=== PATIENT | female | born 1965 | race Caucasian/White ===

== ENCOUNTER 2017-10-10 15:34 | Emergency (ER) | payer MEDICAID, OTHER ==
[~2017-10-10] VITALS: Ht 152.4 cm; Wt 83.8 kg
[2017-10-10 15:51] VITALS: BP 127/90
== END 2017-10-10 17:02 | disposition home or self-care (01) ==
LOC: ED 16:55
DX: J20.8 Acute bronchitis due to other specified organisms (principal); B96.89 Other specified bacterial agents as the cause of diseases classified elsewhere; J00 Acute nasopharyngitis [common cold]; B97.89 Other viral agents as the cause of diseases classified elsewhere
CPT/HCPCS: 71046; 99284

== ENCOUNTER 2017-10-13 14:29 | Emergency (ER) | payer OTHER ==
[~2017-10-13] VITALS: Ht 147.3 cm; Wt 82.7 kg
[2017-10-13 14:34] VITALS: BP 117/83
[2017-10-13] MEDS ORDERED: BENZ100C PO (15:20)
[2017-10-13] MEDS ORDERED: AZIT250T PO (15:20)
[2017-10-13] MEDS ORDERED: DEXAMETHASONE 4 MG/ML, 1ML ONE (15:46)
[2017-10-13] MEDS ORDERED: DEXAMETHASONE 4 MG/ML, 1ML PO ONE (16:00)
== END 2017-10-13 16:42 | disposition home or self-care (01) ==
LOC: ED 15:00
DX: B34.9 Viral infection, unspecified (principal)
CPT/HCPCS: 71046; 93005; 99284; J1100

== ENCOUNTER 2018-04-10 17:08 | Emergency (ER) | payer OTHER ==
[~2018-04-10] VITALS: Ht 157.5 cm; Wt 181.6 kg
[~2018-04-10 17:08] MED LIST: AZIT250T PO; BENZ100C PO
[2018-04-10 17:17] VITALS: BP 120/82
[2018-04-10 17:51] LABS: BASOPHILS # (AUTO) 0.04 x10^3/uL (0-0.1); BASOPHILS % (AUTO) 0 % (0-1); EOSINOPHILS % (AUTO) 1 % (1-7); LYMPHOCYTES # (AUTO) 3.37 x10^3/uL (1-3.4); LYMPHOCYTES % (AUTO) 31 % (22-44); MD NO; MEAN CORPUSCULAR HEMOGLOBIN 31.9 pg (27.0-34.8); MEAN CORPUSCULAR HGB CONC 34.1 g/dL (32.4-35.8); MEAN CORPUSCULAR VOLUME 93.6 fL (80-100); MEAN PLATELET VOLUME 8.1 fL (7.4-10.4); MONOCYTES # (AUTO) 0.65 x10^3/uL (0.2-0.8); MONOCYTES % (AUTO) 6 % (2-9); NEUTROPHILS # (AUTO) 6.76 x10^3/uL (1.8-6.8); NEUTROPHILS % (AUTO) 62 % (42-75); PLATELET COUNT 261 x10^3/uL (130-400); RED BLOOD COUNT 4.58 x10^6/uL (3.82-5.3); RED CELL DISTRIBUTION WIDTH 13.6 % (9.6-15.2)
[2018-04-10 18:00] LABS: ALANINE AMINOTRANSFERASE 28 U/L (12-78); ALBUMIN 3.2 g/dL (3.4-5.0); ANION GAP 9 mmol/L (5-15); CALCIUM 8.1 mg/dL (8.5-10.1); CHLORIDE 108 mmol/L (98-107)
[2018-04-10 18:03] LABS: ALKALINE PHOSPHATASE 69 U/L (45-117); BILIRUBIN,TOTAL 0.5 mg/dL (0.2-1.0); TOTAL PROTEIN 7.8 g/dL (6.4-8.2)
[2018-04-10] MEDS ORDERED: IBUPROFEN 200 MG TABLET ONE (18:47)
[2018-04-10] MEDS ORDERED: IBUPROFEN 200 MG TABLET PO ONE (19:00)
== END 2018-04-10 18:57 | disposition home or self-care (01) ==
LOC: ED 18:15
DX: N63.0 Unspecified lump in unspecified breast (principal); F41.1 Generalized anxiety disorder; F32.9 Major depressive disorder, single episode, unspecified; I10 Essential (primary) hypertension
CPT/HCPCS: 36415; 76642; 80053; 85025; 99285

== ENCOUNTER 2018-06-27 14:19 | Emergency (ER) | payer OTHER ==
[~2018-06-27] VITALS: Ht 165.1 cm; Wt 83.2 kg
[2018-06-27] MEDS ORDERED: CLON0.5T20 PO (14:49)
[2018-06-27] MEDS ORDERED: TRAZ-136 PO (14:49)
[2018-06-27] MEDS ORDERED: Trintellix PO (14:49)
[2018-06-27] MEDS ORDERED: PALI1.5T PO (14:49)
[2018-06-27 15:13] LABS: MICROSCOPIC INDICATED
[2018-06-27 15:13] LABS: BASOPHILS # (AUTO) 0.03 x10^3/uL (0-0.1); BASOPHILS % (AUTO) 0 % (0-1); EOSINOPHILS # (AUTO) 0.13 x10^3/uL (0-0.4); EOSINOPHILS % (AUTO) 1 % (1-7); LYMPHOCYTES # (AUTO) 3.56 x10^3/uL (1-3.4); LYMPHOCYTES % (AUTO) 37 % (22-44); MD NO; MEAN CORPUSCULAR HEMOGLOBIN 31.6 pg (27.0-34.8); MEAN CORPUSCULAR HGB CONC 33.8 g/dL (32.4-35.8); MEAN CORPUSCULAR VOLUME 93.7 fL (80-100); MEAN PLATELET VOLUME 8.2 fL (7.4-10.4); MONOCYTES # (AUTO) 0.58 x10^3/uL (0.2-0.8); MONOCYTES % (AUTO) 6 % (2-9); NEUTROPHILS # (AUTO) 5.43 x10^3/uL (1.8-6.8); NEUTROPHILS % (AUTO) 56 % (42-75); PLATELET COUNT 279 x10^3/uL (130-400); RED BLOOD COUNT 4.61 x10^6/uL (3.82-5.3); RED CELL DISTRIBUTION WIDTH 13.7 % (9.6-15.2)
[2018-06-27 15:14] LABS: CULTURE INDICATED? YES
[2018-06-27 15:23] LABS: ALANINE AMINOTRANSFERASE 37 U/L (12-78); ALBUMIN 3.2 g/dL (3.4-5.0); ANION GAP 5 mmol/L (5-15); CHLORIDE 107 mmol/L (98-107)
[2018-06-27 15:25] LABS: ALKALINE PHOSPHATASE 74 U/L (45-117); BILIRUBIN,TOTAL 0.6 mg/dL (0.2-1.0); TOTAL PROTEIN 7.7 g/dL (6.4-8.2)
[2018-06-27 17:01] VITALS: BP 130/86
== END 2018-06-27 17:39 | disposition home or self-care (01) ==
LOC: ED 16:23
DX: N30.00 Acute cystitis without hematuria (principal); K42.9 Umbilical hernia without obstruction or gangrene; G89.29 Other chronic pain; I10 Essential (primary) hypertension
CPT/HCPCS: 36415; 76700; 80053; 81001; 83690; 85025; 87086; 87147; 93005; 99285

== ENCOUNTER 2018-07-02 10:10 | Emergency (ER) | payer OTHER ==
[~2018-07-02] VITALS: Ht 165.1 cm; Wt 82.0 kg
[~2018-07-02 10:10] MED LIST changes: +CLON0.5T20 PO; +PALI1.5T PO; +TRAZ-136 PO; +Trintellix PO
[2018-07-02 10:17] VITALS: BP 114/80
[2018-07-02] MEDS ORDERED: DEXAMETHASONE 4 MG/ML, 1ML ONE (10:53)
[2018-07-02] MEDS ORDERED: DEXAMETHASONE 4 MG/ML, 1ML PO ONE (11:00)
== END 2018-07-02 11:41 | disposition home or self-care (01) ==
LOC: ED 10:21
DX: B34.9 Viral infection, unspecified (principal); I10 Essential (primary) hypertension
CPT/HCPCS: 87081; 87880; 99284; J1100

== ENCOUNTER 2018-07-26 13:53 | Emergency (ER) | payer OTHER ==
[~2018-07-26] VITALS: Ht 152.4 cm; Wt 85.1 kg
[2018-07-26 14:24] VITALS: BP 116/88
[2018-07-26 15:45] LABS: BASOPHILS # (AUTO) 0.14 x10^3/uL (0-0.1); BASOPHILS % (AUTO) 1 % (0-1); EOSINOPHILS # (AUTO) 0.24 x10^3/uL (0-0.4); EOSINOPHILS % (AUTO) 2 % (1-7); LYMPHOCYTES % (AUTO) 30 % (22-44); MD NO; MEAN CORPUSCULAR HEMOGLOBIN 31.8 pg (27.0-34.8); MEAN CORPUSCULAR HGB CONC 34.2 g/dL (32.4-35.8); MEAN CORPUSCULAR VOLUME 92.9 fL (80-100); MEAN PLATELET VOLUME 7.5 fL (7.4-10.4); MONOCYTES # (AUTO) 0.71 x10^3/uL (0.2-0.8); MONOCYTES % (AUTO) 7 % (2-9); NEUTROPHILS # (AUTO) 5.99 x10^3/uL (1.8-6.8); NEUTROPHILS % (AUTO) 59 % (42-75); PLATELET COUNT 290 x10^3/uL (130-400); RED BLOOD COUNT 4.58 x10^6/uL (3.82-5.3); RED CELL DISTRIBUTION WIDTH 13.8 % (9.6-15.2)
[2018-07-26 15:55] LABS: ALANINE AMINOTRANSFERASE 43 U/L (12-78); ALBUMIN 3.1 g/dL (3.4-5.0); ANION GAP 7 mmol/L (5-15); CALCIUM 8.9 mg/dL (8.5-10.1); CHLORIDE 108 mmol/L (98-107); CREATININE 0.69 mg/dL (0.55-1.02)
[2018-07-26 16:05] LABS: ALKALINE PHOSPHATASE 64 U/L (45-117); BILIRUBIN,TOTAL 0.6 mg/dL (0.2-1.0); FREE T4 (FREE THYROXINE) 0.94 ng/dL (0.76-1.46); TOTAL PROTEIN 7.2 g/dL (6.4-8.2)
== END 2018-07-26 17:05 | disposition home or self-care (01) ==
LOC: ED 16:52
DX: F41.9 Anxiety disorder, unspecified (principal); F32.9 Major depressive disorder, single episode, unspecified; M19.90 Unspecified osteoarthritis, unspecified site
CPT/HCPCS: 36415; 80053; 84439; 84443; 85025; 99284

== ENCOUNTER 2018-10-06 14:13 | Emergency (ER) | payer SELFPAY ==
[~2018-10-06] VITALS: Ht 154.9 cm; Wt 86.1 kg
[~2018-10-06 14:13] MED LIST changes: -TRAZ-136 PO; +TRAZ50TA66 PO
[2018-10-06] MEDS ORDERED: LORazepam 1MG TABLET ONE (14:49)
[2018-10-06] MEDS ORDERED: LORazepam 1MG TABLET PO ONE (15:00)
[2018-10-06 15:37] VITALS: BP 132/88
--- NOTE | 2018-10-06 15:38 | NUR ---
Patient/Caregiver given discharge instructions and they have confirmed that they understand the instructions. Patient ambulatory with steady gait. PT PROVIDED WITH DC INSTRUCTIONS USING DELI CUTTER SLICER. ALL CONCERNS ADRESSED. PT LEFT WITH ALL PERSONAL BELONGINGS. FAMILY MEMBER TO DRIVE PT HOME.
== END 2018-10-06 15:54 | disposition home or self-care (01) ==
LOC: ED 14:42
DX: F41.1 Generalized anxiety disorder (principal); F32.9 Major depressive disorder, single episode, unspecified; I10 Essential (primary) hypertension
CPT/HCPCS: 99284

== ENCOUNTER 2018-12-04 09:51 | Emergency (ER) | payer SELFPAY ==
[~2018-12-04] VITALS: Ht 149.9 cm; Wt 80.7 kg
--- NOTE | 2018-12-04 10:10 | NUR ---
PT STATED THAT SHE HAS PARANOIA AND IS SCARED. CAN NOT SAY WHAT SHE IS SCARED OF. DENIES HEARING VOICES. PT IS ALERT, ORIENTED, WITH NAD.
--- NOTE | 2018-12-04 10:21 | NUR ---
PA AT BEDSIDE. PT STATED THAT SHE HAS HAD PARANOIA FOR A WEEK AND HER MEDICATIONS ARE NOT WORKING. PT WAS SEEN AT [facility] YESTERDAY FOR THE SAME AND WAS GIVEN MEDICATION.
[2018-12-04] MEDS ORDERED: PROP10TA16 PO (10:25)
[2018-12-04] MEDS ORDERED: GABA600T7 PO (10:25)
[2018-12-04] MEDS ORDERED: QUET400T PO (10:25)
[2018-12-04] MEDS ORDERED: CLON1TAB23 PO (10:25)
[2018-12-04] MEDS ORDERED: LORazepam 1MG TABLET PO ONE ×2 (10:30→11:30)
[2018-12-04] MEDS ORDERED: LORazepam 1MG TABLET ONE (10:30)
--- NOTE | 2018-12-04 11:23 | NUR ---
NURSE NOTICED ANOTHER 1M PO ATIVAN WAS ORDERED FOR PT. INFORMED MD THAT PT IS IN THE ROOM SLEEPING. PER MD HOLD THE 2ND ATIVAN UNTIL NEEDED.
--- NOTE | 2018-12-04 12:21 | NUR ---
PA AT BEDSIDE.
[2018-12-04 12:50] VITALS: BP 94/70
--- NOTE | 2018-12-04 12:51 | NUR ---
Patient/Caregiver given discharge instructions and they have confirmed that they understand the instructions. Patient ambulatory with steady gait.
== END 2018-12-04 12:52 | disposition home or self-care (01) ==
LOC: ED 10:58
DX: F41.1 Generalized anxiety disorder (principal); I10 Essential (primary) hypertension; F32.9 Major depressive disorder, single episode, unspecified; M19.90 Unspecified osteoarthritis, unspecified site
CPT/HCPCS: 99284

== ENCOUNTER 2019-12-13 18:02 | Emergency (ER) | payer OTHER ==
[~2019-12-13] VITALS: Ht 152.4 cm; Wt 92.7 kg
[~2019-12-13 18:02] MED LIST changes: +CLON1TAB23 PO; +GABA600T7 PO; +PROP10TA16 PO; +QUET400T PO
[2019-12-13 18:05] VITALS: BP 126/79
--- NOTE | 2019-12-13 18:13 | NUR ---
PT AMBULATED TO ROOM WITH A STEADY GAIT. INSTRUCTED TO CHANGE INTO A HOSPITAL GOWN
--- NOTE | 2019-12-13 18:16 | NUR ---
PT AMBULATED TO AND FROM THE BATHROOM WITH A STEADY GAIT. PT IN TO THE ED WITH C/O COUGH, FEELING LIKE THERE IS "AN INFECTION" IN HER THROAT AND "BONE PAIN".
--- NOTE | 2019-12-13 18:20 | NUR ---
REPORT RECEIVED FROM ALEXANDRA HOLLINS.
--- NOTE | 2019-12-13 18:54 | NUR ---
REPORT FROM ASHLEIGH ASSUMING CARE OF PT AT THIS TIME.
[2019-12-13] MEDS ORDERED: ACETAMINOPHEN 500 MG TABLET ONE (18:59)
[2019-12-13] MEDS ORDERED: ACETAMINOPHEN 500 MG TABLET PO ONE (19:00)
--- NOTE | 2019-12-13 19:01 | NUR ---
PT MEDICATED PER MAR
--- NOTE | 2019-12-13 19:16 | NUR ---
ALL RESULTS BACK AT THIS TIME CHART UP FOR RECHECK
--- NOTE | 2019-12-13 19:48 | NUR ---
PT AMBULATING AROUND ROOM, PT REFUSING MONITORING AT THIS TIME. PROVIDER AWARE
== END 2019-12-13 20:23 | disposition home or self-care (01) ==
LOC: ED 18:25
DX: U07.1 COVID-19 (principal); J20.8 Acute bronchitis due to other specified organisms; J00 Acute nasopharyngitis [common cold]
CPT/HCPCS: 71045; 87081; 87880; 99284

== ENCOUNTER 2020-09-21 04:32 | Emergency (ER) | payer SELFPAY ==
[~2020-09-21] VITALS: Ht 154.9 cm; Wt 82.1 kg
--- NOTE | 2020-09-21 04:45 | NUR ---
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
--- NOTE | 2020-09-21 04:53 | NUR ---
PT PRIMARILY KYRGYZ SPEAKING, UNDERSTANDS SMALL AMOUNTS OF OCCITAN. STATES SHE HAS HAD ABD PAIN FOR 2.5 MONTHS RATES IT 7/10 PAIN IN THE RIGHT AND LEFT LOWER QUADRENT.
[2020-09-21 05:33] VITALS: BP 110/57
== END 2020-09-21 05:34 | disposition home or self-care (01) ==
LOC: ED 05:28
DX: R10.31 Right lower quadrant pain (principal); R10.32 Left lower quadrant pain; I10 Essential (primary) hypertension
CPT/HCPCS: 99281

== ENCOUNTER 2021-05-11 19:45 | Emergency (ER) | payer OTHER ==
[~2021-05-11] VITALS: Ht 147.3 cm; Wt 81.2 kg
[~2021-05-11 19:45] MED LIST changes: -QUET400T PO; +QUET400T2 PO
[2021-05-11] MEDS ORDERED: SODIUM CHLORIDE FLUSH 10ML SYR IVF ONE ×2 (21:30→22:30)
--- NOTE | 2021-05-11 21:40 | NUR ---
PT AMBULATORY TO ROOM FROM TRIAGE AT THIS TIME.
--- NOTE | 2021-05-11 21:42 | NUR ---
AMBULATORY TO RESTROOM C STEADY GAIT FOR URINE SAMPLE.
[2021-05-11 21:57] LABS: BASOPHILS % (AUTO) 1 % (0-1); EOSINOPHILS % (AUTO) 2 % (1-7); LYMPHOCYTES % (AUTO) 40 % (22-44); MEAN CORPUSCULAR HEMOGLOBIN 30.7 pg (27.0-34.8); MEAN PLATELET VOLUME 7.8 fL (7.4-10.4); MONOCYTES % (AUTO) 7 % (2-9); NEUTROPHILS % (AUTO) 51 % (42-75); PLATELET COUNT 253 x10^3/uL (130-400); RED BLOOD COUNT 4.73 x10^6/uL (3.82-5.3); RED CELL DISTRIBUTION WIDTH 13.7 % (9.6-15.2)
[2021-05-11 22:10] LABS: MICROSCOPIC INDICATED
[2021-05-11 22:10] LABS: ANION GAP 5 mmol/L (5-15); CALCIUM 9.1 mg/dL (8.5-10.1); CHLORIDE 106 mmol/L (98-107)
[2021-05-11 22:15] LABS: ALANINE AMINOTRANSFERASE 53 U/L (12-78); ALKALINE PHOSPHATASE 92 U/L (45-117); BILIRUBIN,TOTAL 0.9 mg/dL (0.2-1.0); CREATININE 0.55 mg/dL (0.55-1.02); TOTAL PROTEIN 7.7 g/dL (6.4-8.2)
[2021-05-11] MEDS ORDERED: MORPHINE SULFATE 4 MG/ML, 1ML IVPush PRN (22:30)
[2021-05-11] MEDS ORDERED: ONDANSETRON 2MG/ML, 2ML IVPush ONE (22:30)
[2021-05-11] MEDS ORDERED: MORPHINE SULFATE 4 MG/ML, 1ML ONE (22:33)
[2021-05-11] MEDS ORDERED: ONDANSETRON 2MG/ML, 2ML ONE (22:33)
[2021-05-11] MEDS ORDERED: OMNIPAQUE 350 MG/ML, 100ML BOTTLE ONE (22:56)
[2021-05-11 23:00] VITALS: BP 118/65
== END 2021-05-12 00:15 | disposition home or self-care (01) ==
LOC: ED 22:03
DX: R10.84 Generalized abdominal pain (principal); R93.5 Abnormal findings on diagnostic imaging of other abdominal regions, including retroperitoneum
CPT/HCPCS: 36415; 74177; 80053; 81001; 83690; 85025; 87086; 99285; Q9967